=== PATIENT | male | born 1955 | race Caucasian/White ===

== ENCOUNTER 2023-12-26 04:05 | Day surgery (SDC) | payer OTHER ==
[~2023-12-26] VITALS: Ht 175.3 cm; Wt 107.8 kg
[2023-12-26] VITALS (256 sets, daily range): BP systolic 84–148; BP diastolic 45–98
[2023-12-26] MEDS ORDERED: diazePAM 5 MG/TAB PO PRN ×2 (07:30→08:30)
[2023-12-26] MEDS ORDERED: LACTATED RINGER'S 1,000 ML IV PRN ×3 (07:30→19:00)
[2023-12-26] MEDS ORDERED: ALBUTEROL SULFATE 2.5 MG VIAL IN PRN (07:30)
[2023-12-26] MEDS ORDERED: PANTOPRAZOLE SODIUM Sesquihydr 40 MG/TAB PO PRN (07:30)
[2023-12-26] MEDS ORDERED: FAMOTIDINE 20 MG/TAB PO PRN (07:30)
[2023-12-26] MEDS ORDERED: SCOPOLAMINE 1.5 MG DIS TD PRN (07:30)
[2023-12-26] MEDS ORDERED: CYANOCOBALAMIN 500 MCG/TAB ( B12) PO PRN (07:30)
[2023-12-26] MEDS ORDERED: cloNIDine HCL 0.1 MG/TAB PO PRN (07:30)
[2023-12-26] MEDS ORDERED: ASCORBIC ACID 4,000 MG in SODIUM CHLORIDE 0.9% 1,000 ML IV SCH (08:00)
[2023-12-26] MEDS ORDERED: ACETAMINOPHEN 500 MG TAB PO ONE (08:30)
[2023-12-26 09:01] LABS: BASO% 0.1 % (0-3); EOS% 1.9 % (0-8); HEMATOCRIT 36.4 % (39.0-50.0); HEMOGLOBIN 11.7 g/dl (14.0-18.0); IMMATURE GRANULOCYTES 0.1 % (0.0-5.0); LYMPH% 6.1 % (15-41); MEAN CELL VOLUME 89.4 fL CALC (80.0-100.0); MEAN CORPUSCULAR HGB 28.7 pG CALC (26.0-32.0); MEAN CORPUSCULAR HGB CONC 32.1 g/dL CAL (32.0-36.0); MONO% 11.7 % (2-13); NEUT# 5.48 thou/uL (1.82-7.42); NEUT% 80.1 % (42-76); RED BLOOD COUNT 4.07 mill/uL (4.70-6.10); RED CELL DISTRI WIDTH 12.8 % (11.5-15.5)
[2023-12-26] MEDS ORDERED: LISINOPRIL10 MG PO (09:10)
[2023-12-26] MEDS ORDERED: CIALIS5 MG PO (09:12)
[2023-12-26] MEDS ORDERED: TAMSULOSIN0.4 MG PO (09:13)
[2023-12-26] MEDS ORDERED: KLOR-CON M2020 MEQ PO (09:14)
[2023-12-26] MEDS ORDERED: SEYSARA150 MG PO (09:16)
[2023-12-26] MEDS ORDERED: MAXZIDE-25MG1 COMBO PO (09:17)
[2023-12-26 09:39] LABS: ALBUMIN 3.3 g/dL (3.2-5.0); ALKALINE PHOSPHATASE 59 u/l (38-126); ANION GAP 7 (6-22 (CALC)); BILIRUBIN, TOTAL 0.3 mg/dL (0.2-1.3); BUN 14 mg/dL (8-23); BUN/CREATININE RATIO 13 (12-20 (CALC)); CARBON DIOXIDE 27 mmol/l (22-30); CHLORIDE 107 mmol/l (95-108); CREATININE 1.1 mg/dL (0.7-1.3); GFR FOR AFR.AMER. > 60 ML/MIN (>=60 (CALC)); GFR OTHER RACES > 60 ML/MIN (>=60 (CALC)); POTASSIUM 4.1 mmol/l (3.5-5.1); SGOT/AST 19 u/l (19-48); SODIUM 137 mmol/l (137-146); TOTAL PROTEIN 5.7 g/dL (6.3-8.2)
[2023-12-26] MEDS ORDERED: diazePAM 5 MG/TAB VT PRN (10:10)
[2023-12-26] MEDS ORDERED: SUCCINYLCHOLINE CHLORIDE 20 MG/ML 10ML VIAL IV PRN (10:10)
[2023-12-26] MEDS ORDERED: ROCURONIUM BROMIDE 10 MG/ML 5ML VIAL IV PRN (10:10)
[2023-12-26] MEDS ORDERED: THIAMINE HCL 100 MG/ML 2ML VIAL IV PRN (10:10)
[2023-12-26] MEDS ORDERED: ONDANSETRON HCl 4 MG/2 ML SDV IV PRN ×3 (10:10→19:00)
[2023-12-26] MEDS ORDERED: MIDAZOLAM HCL 2 MG/2 ML VIAL IV PRN (10:10)
[2023-12-26] MEDS ORDERED: OCTREOTIDE ACETATE 100 MCG/VIAL SDV SC PRN (10:10)
[2023-12-26] MEDS ORDERED: POTASSIUM CHLORIDE 20 MEQ/100 ML BAG IV PRN (10:10)
[2023-12-26] MEDS ORDERED: DEXAMETHASONE SOD. PHOSPHATE 10 MG/ML VIAL IV PRN (10:10)
[2023-12-26] MEDS ORDERED: PROPOFOL 10 MG/ML 100ML VIAL IV PRN (10:10)
[2023-12-26] MEDS ORDERED: cloNIDine HYDROCHLORIDE 100 MCG/ML 10 ML INJ IV PRN (10:10)
[2023-12-26] MEDS ORDERED: LIDOCAINE HCL 1% (10MG/ML) 100 MG/10 ML MDV VT PRN ×2 (10:10)
[2023-12-26] MEDS ORDERED: STERILE WATER FOR IRRIGATION 1,000 ML BTL IR PRN (10:10)
[2023-12-26] MEDS ORDERED: PROPOFOL 100 ML IV PRN (10:10)
[2023-12-26] MEDS ORDERED: MAGNESIUM SULFATE HEPTAHYDRATE 100 ML IV PRN (10:10)
[2023-12-26] MEDS ORDERED: cloNIDine HCL 0.1 MG/TAB VT PRN (10:10)
[2023-12-26] MEDS ORDERED: DiphenhydrAMINE HCL 50 MG/ML SDV IV PRN (10:10)
[2023-12-26] MEDS ORDERED: LIDOCAINE HCL 1% (10MG/ML) 100 MG/10 ML MDV IV PRN (10:10)
[2023-12-26] MEDS ORDERED: NALTREXONE HCL 50 MG/TAB VT PRN (10:10)
[2023-12-26] MEDS ORDERED: PHENYLEPHRINE HCL 10 MG/ML VIAL ONE (10:14)
[2023-12-26] MEDS ORDERED: SODIUM CHLORIDE 0.9% 250 ML IV ONE (10:16)
[2023-12-26] MEDS ORDERED: KETOROLAC TROMETHAMINE 30 MG/ML SDV IV ONE (14:40)
[2023-12-26] MEDS ORDERED: LIDOCAINE HCL 1% (10MG/ML) 100 MG/10 ML MDV IV ONE (14:40)
[2023-12-26] MEDS ORDERED: ACETAMINOPHEN 1,000 MG/100 ML VIAL IV ONE (14:40)
[2023-12-26] MEDS ORDERED: NALTREXONE50 MG PO (15:15)
[2023-12-26] MEDS ORDERED: CLONIDINE0.1 MG PO (15:15)
[2023-12-26] MEDS ORDERED: KLONOPIN2 MG PO (15:16)
[2023-12-26] MEDS ORDERED: PROMETHAZINE HCL 25 MG in SODIUM CHLORIDE 0.9% 50 ML IV PRN (19:00)
[2023-12-26] MEDS ORDERED: ACETAMINOPHEN 1,000 MG/100 ML VIAL IV PRN (19:00)
[2023-12-26] MEDS ORDERED: PROMETHAZINE HCL 12.5 MG in SODIUM CHLORIDE 0.9% 50 ML IV PRN (19:00)
[2023-12-26] MEDS ORDERED: KETOROLAC TROMETHAMINE 30 MG/ML SDV IV PRN (19:00)
[2023-12-26] MEDS ORDERED: HALOPERIDOL LACTATE 5 MG/ML SDV IV PRN (19:00)
[2023-12-26] MEDS ORDERED: DEXAMETHASONE SODIUM PHOSPHATE PF 10 MG/ML SDV IV PRN (19:00)
[2023-12-26] MEDS ORDERED: ACETAMINOPHEN 500 MG TAB PO PRN (19:00)
[2023-12-26] MEDS ORDERED: diazePAM 10 MG/2 ML VIAL IV PRN (21:00)
[2023-12-26] MEDS ORDERED: PATIENT' OWN MED CONTROLLED 1 EA DOSE IV PRN (21:00)
[2023-12-26] MEDS ORDERED: cloNIDine HCL 0.1 MG/TAB PO SCH (23:00)
[2023-12-26] MEDS ORDERED: clonazePAM 1 MG/TAB PO SCH (23:00)
[2023-12-27] MEDS ORDERED: cloNIDine HCL 0.1 MG/TAB PO PRN (04:00)
[2023-12-27] MEDS ORDERED: clonazePAM 1 MG/TAB PO PRN ×2 (04:00→08:00)
[2023-12-27 04:27] VITALS: BP 135/73
[2023-12-27 06:56] VITALS: BP 119/53
[2023-12-27] MEDS ORDERED: NALTREXONE HCL 50 MG/TAB PO SCH (08:00)
[2023-12-27] MEDS ORDERED: ACETAMINOPHEN 325 MG/TAB PO SCH (08:00)
[2023-12-27] MEDS ORDERED: PANTOPRAZOLE SODIUM Sesquihydr 40 MG/TAB PO SCH (08:00)
[2023-12-27] MEDS ORDERED: cloNIDine HCL 0.1 MG/TAB PO SCH ×2 (08:00→21:00)
[2023-12-27 08:03] LABS: IMMATURE GRANULOCYTES 0.3 % (0.0-5.0); LYMPH% 3.6 % (15-41); MEAN CORPUSCULAR HGB 28.7 pG CALC (26.0-32.0); MEAN CORPUSCULAR HGB CONC 32.7 g/dL CAL (32.0-36.0); MONO% 5.4 % (2-13); NEUT# 10.56 thou/uL (1.82-7.42); NEUT% 90.7 % (42-76); RED BLOOD COUNT 5.15 mill/uL (4.70-6.10); RED CELL DISTRI WIDTH 12.5 % (11.5-15.5)
[2023-12-27 08:06] LABS: HEMATOCRIT 45.3 % (39.0-50.0); HEMOGLOBIN 14.8 g/dl (14.0-18.0)
[2023-12-27 08:24] LABS: ALBUMIN 3.6 g/dL (3.2-5.0); ALKALINE PHOSPHATASE 52 u/l (38-126); BUN 14 mg/dL (8-23); BUN/CREATININE RATIO 14 (12-20 (CALC)); CARBON DIOXIDE 22 mmol/l (22-30); CHLORIDE 108 mmol/l (95-108); GFR FOR AFR.AMER. > 60 ML/MIN (>=60 (CALC)); GFR OTHER RACES > 60 ML/MIN (>=60 (CALC)); MAGNESIUM 2.6 mg/dL (1.6-2.3); SGOT/AST 26 u/l (19-48); SODIUM 138 mmol/l (137-146); TOTAL PROTEIN 6.3 g/dL (6.3-8.2)
[2023-12-27 08:42] LABS: ANION GAP 13 (6-22 (CALC)); BILIRUBIN, TOTAL 0.7 mg/dL (0.2-1.3)
[2023-12-27] MEDS ORDERED: HCTZ PO SCH (09:00)
[2023-12-27] MEDS ORDERED: LISINOPRIL 10 MG/TAB PO SCH (09:00)
[2023-12-27] MEDS ORDERED: MAGNESIUM OXIDE 400 MG/TAB PO PRN (09:00)
[2023-12-27] MEDS ORDERED: TAMSULOSIN HCL 0.4 MG CAP PO SCH (09:00)
[2023-12-27] MEDS ORDERED: COMBO PO SCH (09:00)
[2023-12-27] MEDS ORDERED: [UNRECOGNIZED DRUG - OTHER] PO SCH (09:00)
[2023-12-27] MEDS ORDERED: ACETAMINOPHEN 500 MG TAB PO PRN (09:00)
[2023-12-27] MEDS ORDERED: ALPRAZolam 1 MG/TAB PO PRN (09:00)
[2023-12-27] MEDS ORDERED: Cholecalciferol 2,000 UNIT/TAB PO PRN (09:00)
[2023-12-27 11:48] VITALS: BP 108/51
[2023-12-27 15:32] VITALS: BP 122/68
[2023-12-27 20:39] VITALS: BP 104/55
[2023-12-27] MEDS ORDERED: clonazePAM 1 MG/TAB PO SCH (21:00)
[2023-12-28 04:43] VITALS: BP 140/77
[2023-12-28] MEDS ORDERED: Pantoprazole Sodium 40 MG VIAL (Protonix) IV SCH (06:00)
[2023-12-28 06:06] LABS: HEMATOCRIT 40.6 % (39.0-50.0); HEMOGLOBIN 13.2 g/dl (14.0-18.0); MEAN CELL VOLUME 88.5 fL CALC (80.0-100.0); MEAN CORPUSCULAR HGB 28.8 pG CALC (26.0-32.0); MEAN CORPUSCULAR HGB CONC 32.5 g/dL CAL (32.0-36.0); RED BLOOD COUNT 4.59 mill/uL (4.70-6.10); RED CELL DISTRI WIDTH 12.9 % (11.5-15.5)
[2023-12-28 06:23] LABS: ALBUMIN 3.2 g/dL (3.2-5.0); ALKALINE PHOSPHATASE 32 u/l (38-126); ANION GAP 11 (6-22 (CALC)); BILIRUBIN, TOTAL 0.9 mg/dL (0.2-1.3); BUN 22 mg/dL (8-23); BUN/CREATININE RATIO 21 (12-20 (CALC)); CARBON DIOXIDE 20 mmol/l (22-30); CHLORIDE 113 mmol/l (95-108); CREATININE 1.1 mg/dL (0.7-1.3); GFR FOR AFR.AMER. > 60 ML/MIN (>=60 (CALC)); GFR OTHER RACES > 60 ML/MIN (>=60 (CALC)); MAGNESIUM 2.4 mg/dL (1.6-2.3); POTASSIUM 4.6 mmol/l (3.5-5.1); SGOT/AST 42 u/l (19-48); SODIUM 140 mmol/l (137-146); TOTAL PROTEIN 5.9 g/dL (6.3-8.2)
[2023-12-28 08:55] VITALS: BP 140/77
[2023-12-28] MEDS ORDERED: NALTREXONE HCL 50 MG/TAB PO SCH (09:00)
[2023-12-28] MEDS ORDERED: ACETAMINOPHEN 500 MG TAB PO PRN (13:40)
[2023-12-28] MEDS ORDERED: MAGNESIUM OXIDE 400 MG/TAB PO PRN (13:40)
== END 2023-12-28 15:15 | disposition home or self-care (01) | DRG 897 ==
LOC: ANR 04:05 → MS2 04:06 → ANR 07:00
PROVIDERS: ATTEND Anesthesiology Critical Care Medicine
DX: F11.20 Opioid dependence, uncomplicated (principal)
CPT/HCPCS: J0131; J2354; J3475; S0164